=== PATIENT | male | born 1955 | race Two or more races ===

== ENCOUNTER 2018-04-11 16:41 | Emergency (ER) | payer SELFPAY ==
[~2018-04-11] VITALS: Ht 188 cm; Wt 122.2 kg
[2018-04-11 17:42] LABS: HEMATOCRIT 39.2 % (38.0-50.0); HEMOGLOBIN 13.7 G/DL (12.5-16.6); MCHC 34.9 G/DL (30.0-36.0); MCV 91.6 FL (86-99); PLATELET COUNT 199 K/uL (156-360); RBC DIS.WIDTH-CV 12.7 % (11.8-14.6); RBC DIS.WIDTH-SD 42.1 % (39-53); RED BLOOD COUNT 4.28 M/uL (4.00-5.50); WHITE BLOOD COUNT 8.3 K/uL (4.1-10.2)
[2018-04-11 17:51] LABS: CHLORIDE 99 mEq/L (99-109); SODIUM 137 mEq/L (136-147)
[2018-04-11 17:52] LABS: GLUCOSE 104 mg/dL (70-99)
[2018-04-11 17:56] LABS: CREATININE 1.3 mg/dL (0.6-1.3)
[2018-04-11 17:57] LABS: UREA NITROGEN (BUN) 10 mg/dL (9-23)
[2018-04-11 17:59] LABS: GFR ESTIMATE (CALCULATED) > 59 mL/min/ (58.99-99999)
[2018-04-11 18:03] LABS: TROP-I INTERPRETATION NEGATIVE; TROPONIN-I < 0.01 ng/mL (0.0-0.30)
[2018-04-11 21:40] VITALS: BP 120/75
[2018-04-11 21:47] LABS: TROP-I INTERPRETATION NEGATIVE; TROPONIN-I < 0.01 ng/mL (0.0-0.30)
== END 2018-04-11 21:40 | disposition left against medical advice (07) ==
LOC: EME 16:41
PROVIDERS: Physician Assistant
DX: R06.09 Other forms of dyspnea (principal); I10 Essential (primary) hypertension; Z95.0 Presence of cardiac pacemaker; Z72.0 Tobacco use; Z88.6 Allergy status to analgesic agent
CPT/HCPCS: 71046; 80048; 84484; 85027; 85379; 93005; 99281; 99285

== ENCOUNTER 2018-05-29 01:00 | Inpatient (IN) | payer SELFPAY ==
[~2018-05-29] VITALS: Ht 182.9 cm; Wt 120.8 kg
[2018-05-29] VITALS (7 sets, daily range): BP systolic 127–183; BP diastolic 64–101
[2018-05-29 01:30] LABS: HEMATOCRIT 38.2 % (38.0-50.0); HEMOGLOBIN 12.8 G/DL (12.5-16.6); MCHC 33.5 G/DL (30.0-36.0); MCV 92.5 FL (86-99); PLATELET COUNT 188 K/uL (156-360); RBC DIS.WIDTH-CV 12.9 % (11.8-14.6); RBC DIS.WIDTH-SD 43.8 % (39-53); RED BLOOD COUNT 4.13 M/uL (4.00-5.50); WHITE BLOOD COUNT 13.3 K/uL (4.1-10.2)
[2018-05-29 01:35] LABS: ALBUMIN 4.1 g/dL (3.2-4.8); CHLORIDE 107 mEq/L (99-109); POTASSIUM 3.8 mEq/L (3.7-5.4); SODIUM 140 mEq/L (136-147)
[2018-05-29 01:37] LABS: GLUCOSE 118 mg/dL (70-99); TOTAL PROTEIN 6.9 g/dL (6.4-8.3)
[2018-05-29 01:39] LABS: TOTAL BILIRUBIN 0.3 mg/dL (0.0-1.0)
[2018-05-29 01:40] LABS: SERUM ETHYL ALCOHOL < 10 mg/dL
[2018-05-29 01:41] LABS: CREATININE 1.7 mg/dL (0.6-1.3); GFR ESTIMATE (CALCULATED) 44 mL/min/ (58.99-99999)
[2018-05-29 01:42] LABS: ALKALINE PHOSPHATASE 72 IU/L (3-129); AST (GOT) 27 IU/L (2-34)
[2018-05-29 01:43] LABS: UREA NITROGEN (BUN) 20 mg/dL (9-23)
[2018-05-29 01:44] LABS: SALICYLATE 7.7 MG/DL (15-30)
[2018-05-29 01:45] LABS: ACETAMINOPHEN (TYLENOL) < 10 mcg/mL (10-30); ALT (GPT) 20 IU/L (3-49); LIPASE 44 U/L (1.0-51.0)
[2018-05-29 01:54] LABS: TROP-I INTERPRETATION NEGATIVE; TROPONIN-I 0.01 ng/mL (0.0-0.30)
[2018-05-29 02:10] LABS: APPEARANCE CLEAR ((CLEAR)); BILIRUBIN NEGATIVE; BLOOD MODERATE; COLOR YELLOW ((YELLOW)); GLUCOSE (STRIP) NEGATIVE; KETONES NEGATIVE; LEUKOCYTES NEGATIVE; NITRITE NEGATIVE; PROTEIN (STRIP) 30; SPECIFIC GRAVITY 1.021 (1.000-1.030)
[2018-05-29 02:33] LABS: BACTERIA NONE SEEN /HPF; EPITHELIAL CELLS NONE SEEN /HPF; HYALINE CASTS 0-5 /LPF; MUCUS TRACE /LPF; RED BLOOD CELLS 0-5 /HPF (0-5); UCUL ADDED? NO; WHITE BLOOD CELLS 0-5 /HPF (0-5)
[2018-05-29 02:45] LABS: AMPHETAMINE NEGATIVE (500 ng/mL); BARBITURATES NEGATIVE (200 ng/mL); BENZODIAZEPINES NEGATIVE (150 ng/mL); COCAINE NEGATIVE (150 ng/mL); METHADONE NEGATIVE (200 ng/mL); METHAMPHETAMINE NEGATIVE (500 ng/mL); OPIATES (MORPHINE) NEGATIVE (100 ng/mL); OXYCODONE NEGATIVE (100 ng/mL); PHENCYCLIDINE PRESUMPTIVE POSITIVE (25 ng/mL); PROPOXYPHENE NEGATIVE (300 ng/mL); THC CANNABINOIDS NEGATIVE (50 ng/mL); TRICYCLIC ANTIDEPRESSANTS NEGATIVE (300 ng/mL)
[2018-05-29 02:46] LABS: BUPRENORPHINE NEGATIVE (10 ng/mL)
[2018-05-29 03:30] LABS: PHOSPHORUS 2.2 mg/dL (2.5-4.9)
[2018-05-29 03:57] LABS: CREATINE KINASE 590 IU/L (1-294)
[2018-05-29 05:18] LABS: CHLORIDE 110 mEq/L (99-109); POTASSIUM 4.5 mEq/L (3.7-5.4); SODIUM 143 mEq/L (136-147)
[2018-05-29 05:19] LABS: GLUCOSE 128 mg/dL (70-99)
[2018-05-29 05:23] LABS: CREATININE 1.4 mg/dL (0.6-1.3); GFR ESTIMATE (CALCULATED) 55 mL/min/ (58.99-99999)
[2018-05-29 05:25] LABS: UREA NITROGEN (BUN) 18 mg/dL (9-23)
[2018-05-29 05:26] LABS: SALICYLATE 5.7 MG/DL (15-30)
[2018-05-29 09:58] LABS: BICARBONATE 24.3 mEq/L (22-26); CARBOXY HGB 1.7 % (0-5); METHEMOGLOBIN 0.8 % (0-1.5); PCO2 44 mm Hg (35-45); PO2 127 mm Hg (80-100); pH 7.35 (7.35-7.45)
[2018-05-29 09:59] LABS: BASE EXCESS -1.5 mEq/L (-3 to +3); COMMENTS - BLOOD GASES A+C; DEVICE NC; O2 FLOW 2 L/MIN; SITE LR
[2018-05-29] MEDS ORDERED: ADVIL,NUPRIN,M200 MG PO (10:54)
[2018-05-29] MEDS ORDERED: CENTRUM MEN'S1 EACH PO (10:54)
[2018-05-29 14:29] LABS: BASOPHIL (%) 0.3 % (0-1); EOSINOPHIL (%) 1.6 % (0-5); EOSINOPHIL COUNT 0.1 K/uL (0-0.3); HEMATOCRIT 37.3 % (38.0-50.0); HEMOGLOBIN 12.1 G/DL (12.5-16.6); IMMATURE GRANULOCYTE (%) 0.3 % (0.0-0.7); LYMPHOCYTE (%) 20.8 % (15-42); LYMPHOCYTE COUNT 1.6 K/uL (1.0-2.8); MCHC 32.4 G/DL (30.0-36.0); MCV 95.6 FL (86-99); MONOCYTE (%) 10.6 % (3-12); MONOCYTE COUNT 0.8 K/uL (0-0.8); NEUTROPHIL (%) 66.4 % (45-76); PLATELET COUNT 166 K/uL (156-360); RBC DIS.WIDTH-CV 13.3 % (11.8-14.6); RBC DIS.WIDTH-SD 46.6 % (39-53); WHITE BLOOD COUNT 7.6 K/uL (4.1-10.2)
[2018-05-29 14:58] LABS: CHLORIDE 109 MEQ/L (99-109); CREATININE 1.4 MG/DL (0.6-1.3); GFR ESTIMATE (CALCULATED) 55 mL/min/ (58.99-99999); GLUCOSE 116 mg/dL (70-99); POTASSIUM 4.1 MEQ/L (3.7-5.4); SODIUM 143 MEQ/L (136-147); UREA NITROGEN (BUN) 15 mg/dL (9-23)
[2018-05-30 03:21] VITALS: BP 164/76
[2018-05-30 06:33] LABS: HEMATOCRIT 39.5 % (38.0-50.0); HEMOGLOBIN 12.7 G/DL (12.5-16.6); MCH 30.2 PG (29.0-34.0); MCHC 32.2 G/DL (30.0-36.0); PLATELET COUNT 179 K/uL (156-360); RBC DIS.WIDTH-CV 13.1 % (11.8-14.6); RBC DIS.WIDTH-SD 45.1 % (39-53); WHITE BLOOD COUNT 7.4 K/uL (4.1-10.2)
[2018-05-30 06:59] LABS: CHLORIDE 105 MEQ/L (99-109); GFR ESTIMATE (CALCULATED) > 59 mL/min/ (58.99-99999); GLUCOSE 112 mg/dL (70-99); POTASSIUM 3.8 MEQ/L (3.7-5.4); SODIUM 139 MEQ/L (136-147); UREA NITROGEN (BUN) 11 mg/dL (9-23)
[2018-05-30 08:02] VITALS: BP 163/97
[2018-05-30 11:45] VITALS: BP 176/81
[2018-05-30] MEDS ORDERED: AMLODIPINE BESYL5 MG PO (11:51)
[2018-05-30] MEDS ORDERED: TRAZODONE HCL50 MG PO (11:51)
[2018-05-30] MEDS ORDERED: ZOLPIDEM TARTRAT5 MG PO (11:52)
[2018-05-30] MEDS ORDERED: KEFLEX500 MG PO (11:52)
[2018-05-30] MEDS ORDERED: ENDOCET 5-3251 EACH PO (13:49)
[2018-05-30 15:49] VITALS: BP 183/98
== END 2018-05-30 16:56 | disposition home or self-care (01) | DRG 918 ==
LOC: EME → EDBD 01:00 → EME 01:00 → EDSEX 01:00 → EDOF 04:53 → 3EAST 04:53 → ENRESERV 04:55 → 3EAST 06:14
PROVIDERS: Emergency Medicine; Hospitalist
DX: T48.5X1A Poisoning by other anti-common-cold drugs, accidental (unintentional), initial encounter (principal); E87.2 Acidosis; I83.218 Varicose veins of right lower extremity with both ulcer of other part of lower extremity and inflammation; I83.228 Varicose veins of left lower extremity with both ulcer of other part of lower extremity and inflammation; L97.811 Non-pressure chronic ulcer of other part of right lower leg limited to breakdown of skin; L97.321 Non-pressure chronic ulcer of left ankle limited to breakdown of skin; N17.9 Acute kidney failure, unspecified; F17.210 Nicotine dependence, cigarettes, uncomplicated; G47.00 Insomnia, unspecified; I10 Essential (primary) hypertension; I87.8 Other specified disorders of veins; R45.1 Restlessness and agitation; Z78.1 Physical restraint status; Z88.6 Allergy status to analgesic agent; Z82.49 Family history of ischemic heart disease and other diseases of the circulatory system
CPT/HCPCS: 36600; 71045; 80048; 80048 91; 80053; 81003; 82550; 83605; 83690; 83735; 84100; 84484; 84999; 85025; 85027; 93005; 99281; 99284; G0480; J0330; J0690; J1630; J1650; J2060; J7030